=== PATIENT | female | born 1930 | race Caucasian/White ===

== ENCOUNTER 2017-06-22 12:00 | Inpatient (IN) | payer OTHER ==
[~2017-06-22] VITALS: Ht 147.3 cm; Wt 38.6 kg
--- NOTE | ~2017-06-22 | EKG ---
[place] [address] [employer] [place] [address] ELECTROCARDIOGRAM REPORT Name: JONA ENGLAND Room #: 464-P ADM IN M.R.#: [id number] Admission: 06/22/17 Attend Phys: Kodak Adames MD Discharge: Date of : [birth year] Report #: [id number] THIS REPORT FOR: //name// [facility] ED Test Date: 2017-06-22 Test Time: 14:09:38 Pat Name: JONA ENGLAND Department: Room: 464 Gender: F Wound Care Physician: [id number] : 1930 Requested By: Mason Lincoln Order Number: [id number] MD: Devon Mark Measurements Intervals [place] Rate: 154 P: IN: QRS: 94 QRSD: 104 T: -27 QT: 323 QTc: 517 Interpretive Statements Atrial fibrillation with rapid V-rate Borderline low voltage, extremity leads Consider RVH w/ secondary repol abnormality Compared to ECG 06/03/2013 07:07:18 Sinus bradycardia no longer present ST and T wave abnormality now present Electronically Signed On 06-23-2017 8:22:01 CDT by Devon Mark [email or web address] <ELECTRONICALLY SIGNED> By: Devon Mark MD, [facility] 06/23/17 0822 1409 1409 Devon Mark MD, [facility] /EPI
--- NOTE | ~2017-06-22 | 2DMMODE ---
[facility] [address], [facility] [email or web address] [address] 2 D/M-MODE ECHOCARDIOGRAM Name: JONA ENGLAND Room #: 464-P ADM IN M.R.#: [id number] Admission: 06/22/17 Attend Phys: Kodak Adames, Discharge: Date of : [birth year] Date of Service: 06/23/17 1040 Report #: [id number] THIS REPORT FOR: //name// APPROVED REPORT Study performed: 06/23/2017 09:48:49 EXAM: Comprehensive 2D, Doppler, and color-flow Echocardiogram Patient Location: Bedside Room #: 464 Status: routine BSA: 1.30 HR: 80 bpm BP: 148/84 mmHg Rhythm: Atrial Fibrillation Other Information Study Quality: Good Indications Afib RVR. Hx: Afib, COPD 2D Dimensions RVDd: 33.20 mm LVEF(%): 57.70 (>50%) IVSd: 11.35 (7-11mm) LVOT Diam: 19.04 (18-24mm) LVDd: 39.52 mm PWd: 11.54 (7-11mm) Ascending Ao: 32.79 (22-36mm) LVDs: 27.70 (25-40mm) Aortic Root: 30.82 mm Fish's LVEF: 57.70 % Volumes Left Atrial Volume (Systole) Single Plane 4CH: 61.68 mL Single Plane 2CH: 80.07 mL LA ESV Index: 57.00 mL/m2 Aortic Valve AoV Peak Luis.: 1.22 m/s AO Peak Gr.: 7.81 mmHg LVOT Max P.71 mmHg LVOT Max V: 0.65 m/s SCAR Vmax: 1.52 cm2 Mitral Valve MV Decel. Time: 140.81 ms MV E Max Luis.: 1.53 m/s [facility] [place] [address] 2 D/M-MODE ECHOCARDIOGRAM Name: JONA ENGLAND Room #: 464-P [facility] IN M.R.#: [id number] Admission: 06/22/17 Attend Phys: Kodak Adames, Discharge: Date of : [birth year] Date of Service: 06/23/17 1040 Report #: [id number] Pulmonary Valve PV Peak Luis.: 0.58 m/s PV Peak Gr.: 1.39 mmHg Tricuspid Valve TR Peak Luis.: 2.88 m/s RAP Estimate: 10.00 mmHg TR Peak Gr.: 33.21 mmHg PA Pressure: 43.00 mmHg Left Ventricle The left ventricle is normal size. There is normal LV segmental wall motion. Borderline concentric left ventricular hypertrophy. Left ventricular systolic function is normal. LVEF is 50-55%. This study is not technically sufficient to allow evaluation of the LV diastolic function due to atrial fibrillation. Right Ventricle The right ventricle is normal size. Right ventricle is mildly hypokinetic. Atria Left atrium is severely dilated. Right atrium is severely dilated. Aortic Valve Aortic valve is trileaflet, mildly thickened Mild aortic regurgitation. There is no aortic valvular stenosis. Mitral Valve Mitral valve leaflets are thickened. Moderately severe mitral regurgitation No evidence of mitral valve stenosis. Tricuspid Valve The tricuspid valve is normal in structure. There is moderate tricuspid regurgitation. There is moderate pulmonary hypertension with an estimated PAP of 45mmHg. Pulmonic Valve The pulmonary valve is normal in structure. Mild pulmonic regurgitation. Great Vessels The aortic root is normal in size. IVC is dilated and collapses <50% with inspiration. Pericardium [facility] [address] [place] [address] 2 D/M-MODE ECHOCARDIOGRAM Name: JONA ENGLAND Room #: 464-P [facility] IN .R.#: [id number] Admission: 06/22/17 Attend Phys: Kodak Adames, Discharge: Date of : [birth year] Date of Service: 06/23/17 1040 Report #: [id number] There is no pericardial effusion. Left and right pleural effusions noted. <Conclusion> Left ventricular systolic function is normal. LVEF is 50-55%. Normal LV segmental wall motion. Both atria are severely dilated. Aortic valve is trileaflet, mildly thickened; no stenosis. Mild regurgitation. Mitral valve leaflets are thickened. Moderately severe mitral regurgitation Pulmonary artery pressure of 45mmHg There is no pericardial effusion. <ELECTRONICALLY SIGNED> By: Devon Mark MD, [facility] 06/23/17 1040 1040 1040 Devon Mark MD, [facility] /INF
--- NOTE | ~2017-06-22 | EKG ---
[address] [address] ELECTROCARDIOGRAM REPORT Name: JONA ENGLAND Room #: 464-P ADM IN M.R.#: [id number] Admission: 06/22/17 Attend Phys: Kodak Adames MD Discharge: Date of : [birth year] Report #: [id number] THIS REPORT FOR: //name// [facility] Test Date: 2017-06-23 Test Time: 07:49:54 Pat Name: JONA ENGLAND Department: Room: 464 Gender: F Head Teacher: estela : 1930 Requested By: Mason Lincoln Order Number: [id number] MD: Devon Mark Measurements Intervals [place] Rate: 111 P: HI: QRS: 91 QRSD: 103 T: 28 QT: 387 QTc: 526 Interpretive Statements Atrial fibrillation Right ventricular conduction delay Compared to ECG 06/03/2013 07:07:18 Heart rate has slowed Electronically Signed On 06-23-2017 9:10:51 CDT by Devon Mark [email or web address] <ELECTRONICALLY SIGNED> By: Devon Mark MD, [facility] 06/23/1710 0749 0749 Devon Mark MD, [facility] /EPI
--- NOTE | ~2017-06-22 | H ---
[facility] [place] [address] HISTORY AND PHYSICAL Name: JONA ENGLAND Room #: 464-P ADM IN M.R.#: [id number] Admission: 06/22/17 Attend Phys: Kodak Adames MD Discharge: Date of : [birth year] Report #: [id number] THIS REPORT FOR: //name// CC: Kodak Lebron DATE OF SERVICE: 06/22/2017 REASON FOR ADMISSION: Failure to thrive. HISTORY OF PRESENT ILLNESS: The patient is a pleasant 87-year-old female with multiple underlying medical problems including dementia as well as chronic atrial fibrillation. She has recently been experiencing poor p.o. intake and nausea. She has also been somewhat more confused intermittently. There has also been some note made of occasional rectal blood in her stool. The patient herself appears to be deteriorating hence her family brought her into the emergency room today. Here, she was noted to be tachycardic with atrial fibrillation with heart rates in the 140-150 range. She is awake and alert and appropriately responsive; however, reports poor appetite as well as some mild subjective nausea. She denies any fevers at home. She denies cloudy urine. She denies chest pain, shortness of breath, skin rashes or other problems at this time. PAST MEDICAL HISTORY: Includes: 1. Chronic atrial fibrillation, on rate control and anticoagulation. 2. Dementia. 3. Hypertension. 4. Hyperlipidemia. 5. Peripheral vascular disease, requiring . PAST SURGICAL HISTORY: Includes hysterectomy. MEDICATIONS: Refer to reconciliation note. ALLERGIES: Reported to [facility]. SOCIAL HISTORY: She is a nonsmoker, nondrinker and lives at home with her family. FAMILY HISTORY: Includes hypertension. REVIEW OF SYSTEMS: Twelve-point review of systems performed and negative except as mentioned in history of present illness. PHYSICAL EXAMINATION: VITAL SIGNS: When seen today, the patient's vitals, afebrile, pulse rate 120s [address] [address] HISTORY AND PHYSICAL Name: JONA ENGLAND Room #: 464-P [facility] IN ..#: [id number] Admission: 06/22/17 Attend Phys: Kodak Adames MD Discharge: Date of : [birth year] Report #: [id number] to 150s, irregular; respiratory rate of 16, blood pressure 136/91, O2 sat is 98 on nasal cannula. GENERAL: Elderly frail lady, in no acute obvious distress. HEENT: Unremarkable. NECK: No JVD or thyromegaly. CARDIOVASCULAR: S1, S2 irregularly irregular, tachycardic. RESPIRATORY: Air entry present bilaterally. ABDOMEN: Soft, nontender. EXTREMITIES: Without edema. NEUROLOGIC: Awake, alert and appropriately responsive, able to move all extremities without any obvious focality. SKIN: Dry. LABS AND INVESTIGATIONS: Reviewed. Chemistry notable for hyponatremia 123, hypochloremia of 87. BUN and creatinine is 31 and 1.1, glucose mildly elevated at 131. AST and ALT mildly elevated at 57 and 67 respectively. Lactic acid mildly elevated at 2.6. CBC is unremarkable without any significant leukocytosis. Urinalysis with negative nitrites, trace leukocyte esterase, 6-15 white blood cells. IMAGING: Includes a chest x-ray, which shows mild bibasilar infiltrates and trace effusions. ASSESSMENT AND PLAN: This is an 87-year-old female being admitted with failure to thrive and nausea. 1. Failure to thrive/nausea, suspect this is primarily all related to her underlying dementia and suspect treatment modalities are unlikely limited. She does have some metabolic abnormalities at the present time and we will attempt to correct the same and see if there is any improvement. We will also obtain a liver ultrasound and KUB in light of mild transaminitis in case this may be contributory to her symptoms, though this was felt unlikely. 2. Chronic atrial fibrillation and rapid ventricular response. With rapid ventricular response at the present time, she is being started on a diltiazem infusion and will be seen by Dr. Alcala with cardiology. She also will have her Apixaban resumed. 3. Possible urinary tract infection. She does appear to have some pyuria; however, does not have leukocytosis or nitrites or any other significant finding at the present time, we will continue empiric Rocephin as started in the emergency room and follow urine cultures. She does not appear to have any signs of sepsis right now. She does have trivial lactic acid elevation; however, this is felt to be tachycardia mediated. 4. Underlying dementia, on Aricept. 5. Code status: The patient is do not resuscitate/do not intubate, which was discussed with the family present at bedside today. 6. Overall, the patient appears to have symptoms related to advanced dementia and may benefit from placement and will involve physical and occupational [facility] [address] [place] [address] HISTORY AND PHYSICAL Name: JONA ENGLAND Room #: 464-P ADM IN M.R.#: [id number] Admission: 06/22/17 Attend Phys: Kodak Adames MD Discharge: Date of : [birth year] Report #: [id number] therapy services as well as case management . 7. Hyponatremia and hypochloremia, likely represents dehydration from poor oral intake. We will hydrate and assess for improvement. <ELECTRONICALLY SIGNED> By: Kodak Adames MD 06/23/17 1258 1550 1706 Kodak Adames MD /nt
[~2017-06-22 12:00] MED LIST: ASPIRIN EC325 M1 PO; AZOR 10-40 MG1 EACH PO; BYSTOLIC10 MG PO; CALCIUM 600 +1 EAC1 PO; CENTRUM COMPLE1 EACH PO; CLONIDINE HCL0.2 M2 PO; COMPLETE M9 MG/15 ML; FLONASE 0.05%50 MCG NASAL; HYDROCHLOROTHIA25 M1 PO; LUMIGAN2.5 ML OPHTHALMIC; SIMVASTATIN20 MG PO; ZYRTEC10 M2 PO
[2017-06-22 12:02] VITALS: BP 130/81
[2017-06-22 13:28] LABS: ABSOLUTE NEUTROPHILS 6.4 thou/uL (1.4-8.2); BASOPHILS 0.5 % (0.0-2.0); EOSINOPHILS 0.1 % (0.0-3.0); HEMATOCRIT 38.5 % (37.0-47.0); LYMPHOCYTES 11.4 % (24.0-44.0); MCH 29.2 pg (26.0-34.0); MCHC 33.7 g/dL (28.0-37.0); MCV 86.5 fL (80.0-100.0); MONOCYTES 10.1 % (1.0-8.0); PLATELET COUNT 168 thou/uL (150-400); POLYS 77.9 % (36.0-66.0); RBC 4.45 mil/uL (4.20-5.00); RDW 13.5 % (10.5-14.5); WBC 8.2 thou/uL (4.0-11.0)
[2017-06-22] MEDS ORDERED: ELIQUIS2.5 MG PO (13:33)
[2017-06-22 13:34] LABS: MANUAL DIFF NO
[2017-06-22] MEDS ORDERED: ARICEPT 5 MG TAB5 MG PO (13:35)
[2017-06-22 13:51] LABS: CALCIUM 9.7 mg/dL (8.5-10.1); CREATININE 1.1 mg/dL (0.6-1.0); POTASSIUM 3.8 mmol/L (3.5-5.1)
[2017-06-22 13:57] LABS: ALBUMIN 3.5 g/dL (3.4-5.0); DIRECT BILIRUBIN 0.2 mg/dL (<0.1-0.3); TOTAL BILIRUBIN 0.6 mg/dL (<0.1-1.0); TOTAL PROTEIN 6.6 g/dL (6.4-8.2)
[2017-06-22 14:01] LABS: URINE BILIRUBIN NEGATIVE (Negative); URINE BLOOD 2+ (Negative); URINE COLOR YELLOW; URINE GLUCOSE-RANDOM* NEGATIVE (Negative); URINE KETONES NEGATIVE (Negative); URINE NITRITE NEGATIVE (Negative); URINE PROTEIN (DIPSTICK) 2+ (Negative); URINE SPECIFIC GRAVITY 1.025 (1.003-1.035); URINE UROBILINOGEN 0.2 E.U./dl (0.2-1.0)
[2017-06-22 14:23] LABS: BACTERIA 1-9 Few /HPF (None Seen); CALCIUM OXALATE 0-3 Few /LPF (None Seen); HYALINE CASTS >10 Many /LPF (None Seen); SQUAMOUS 4-10 Moderate /LPF (0-3); URINE RBC 3-10 Few /HPF (0-2); URINE WBC 6-15 Few /HPF (0-5); WBC CLUMPS Few (None Seen)
[2017-06-22 16:20] VITALS: BP 113/74
[2017-06-22 16:30] VITALS: BP 132/71
[2017-06-22 20:56] VITALS: BP 142/89
[2017-06-23 05:05] VITALS: BP 148/84
[2017-06-23 06:08] LABS: HEMATOCRIT 36.9 % (37.0-47.0); HEMOGLOBIN 12.3 gm/dL (12.0-15.0); MCH 29.4 pg (26.0-34.0); MCHC 33.5 g/dL (28.0-37.0); MCV 87.8 fL (80.0-100.0); RBC 4.2 mil/uL (4.20-5.00); RDW 13.7 % (10.5-14.5); WBC 6.5 thou/uL (4.0-11.0)
[2017-06-23 06:16] LABS: CALCIUM 8.6 mg/dL (8.5-10.1); CREATININE 0.9 mg/dL (0.6-1.0); POTASSIUM 3.4 mmol/L (3.5-5.1)
[2017-06-23 08:33] VITALS: BP 143/79
[2017-06-23 12:54] VITALS: BP 150/80
[2017-06-23 16:20] VITALS: BP 148/72
[2017-06-23 21:17] VITALS: BP 150/97
[2017-06-24 03:18] VITALS: BP 175/99
[2017-06-24 04:19] LABS: HEMATOCRIT 36.8 % (37.0-47.0); HEMOGLOBIN 12.2 gm/dL (12.0-15.0); MCH 29.3 pg (26.0-34.0); MCHC 33.1 g/dL (28.0-37.0); MCV 88.4 fL (80.0-100.0); RBC 4.16 mil/uL (4.20-5.00); RDW 13.8 % (10.5-14.5); WBC 8.1 thou/uL (4.0-11.0)
[2017-06-24 04:56] LABS: CALCIUM 7.4 mg/dL (8.5-10.1); CREATININE 0.9 mg/dL (0.6-1.0); POTASSIUM 3.6 mmol/L (3.5-5.1)
[2017-06-24 07:15] VITALS: BP 146/87
[2017-06-24 11:28] VITALS: BP 137/75
[2017-06-24 15:40] VITALS: BP 114/61
[2017-06-24 20:34] VITALS: BP 131/72
[2017-06-25 05:06] VITALS: BP 127/82
[2017-06-25 05:35] LABS: HEMATOCRIT 35.3 % (37.0-47.0); MCH 29.8 pg (26.0-34.0); MCHC 34.1 g/dL (28.0-37.0); MCV 87.4 fL (80.0-100.0); RBC 4.04 mil/uL (4.20-5.00); RDW 14.3 % (10.5-14.5); WBC 7.5 thou/uL (4.0-11.0)
[2017-06-25 05:46] LABS: CREATININE 0.8 mg/dL (0.6-1.0); POTASSIUM 4.3 mmol/L (3.5-5.1)
[2017-06-25 08:06] VITALS: BP 138/85
[2017-06-25] MEDS ORDERED: CARDIZEM CD240 MG PO (08:39)
[2017-06-25] MEDS ORDERED: TOPROL XL100 MG PO (08:39)
[2017-06-25] MEDS ORDERED: CEFPODOXIME PR200 M1 PO (08:42)
[2017-06-25] MEDS ORDERED: DIGOXIN250 MCG PO (08:43)
[2017-06-25 10:48] VITALS: BP 138/85
[2017-06-25 13:30] VITALS: BP 130/70
[2017-06-25 17:44] VITALS: BP 140/86
[2017-06-25 19:10] VITALS: BP 123/71
[2017-06-26 04:10] VITALS: BP 149/61
[2017-06-26 07:55] VITALS: BP 138/85
[2017-06-26 08:11] VITALS: BP 138/85
[2017-06-26 08:15] VITALS: BP 138/85
[2017-06-26 08:16] VITALS: BP 158/100
== END 2017-06-26 13:30 | disposition home health service (06) | DRG 308 ==
LOC: ER 12:00 → EROBS 15:22 → 4W 15:22
PROVIDERS: Hospitalist; Nurse Practitioner
DX: I48.2 Chronic atrial fibrillation (principal); G93.41 Metabolic encephalopathy; N39.0 Urinary tract infection, site not specified; E87.1 Hypo-osmolality and hyponatremia; F03.90 Unspecified dementia, unspecified severity, without behavioral disturbance, psychotic disturbance, mood disturbance, and anxiety; Z66 Do not resuscitate; J44.9 Chronic obstructive pulmonary disease, unspecified; R53.81 Other malaise; F41.9 Anxiety disorder, unspecified; K21.9 Gastro-esophageal reflux disease without esophagitis; I25.10 Atherosclerotic heart disease of native coronary artery without angina pectoris; M19.90 Unspecified osteoarthritis, unspecified site; R13.10 Dysphagia, unspecified; K57.30 Diverticulosis of large intestine without perforation or abscess without bleeding; I10 Essential (primary) hypertension; E86.0 Dehydration; M81.0 Age-related osteoporosis without current pathological fracture; E78.5 Hyperlipidemia, unspecified; I73.9 Peripheral vascular disease, unspecified; E87.8 Other disorders of electrolyte and fluid balance, not elsewhere classified; Z90.710 Acquired absence of both cervix and uterus; Z88.8 Allergy status to other drugs, medicaments and biological substances; Z79.01 Long term (current) use of anticoagulants; Z82.49 Family history of ischemic heart disease and other diseases of the circulatory system; Z79.899 Other long term (current) drug therapy; Z98.42 Cataract extraction status, left eye; Z98.41 Cataract extraction status, right eye; Z88.6 Allergy status to analgesic agent; Z88.2 Allergy status to sulfonamides
CPT/HCPCS: 10045

== ENCOUNTER 2017-07-23 13:51 | Inpatient (IN) | payer OTHER ==
[~2017-07-23] VITALS: Ht 152.4 cm; Wt 37.0 kg
--- NOTE | ~2017-07-23 | EKG ---
[address] [place] [address] ELECTROCARDIOGRAM REPORT Name: ENGLANDJONA Room #: 202-P ADM IN M.R.#: [id number] Admission: 07/23/17 Attend Phys: Saroj Amado Discharge: Date of : [birth year] Report #: [id number] THIS REPORT FOR: //name// [facility] ED Test Date: 2017-07-23 Test Time: 14:09:42 Pat Name: JONA ENGLAND Department: Room: 202 Gender: F Steamer Tender: TORO : 1930 Requested By: Gracia William Order Number: [id number] MD: Harrison Ashley Measurements Intervals [place] Rate: 70 P: 88 DC: 217 QRS: 5 QRSD: 88 T: 240 QT: 308 QTc: 333 Interpretive Statements Sinus rhythm Borderline prolonged DC interval Probable left atrial enlargement RSR' in V1 or V2, right VCD or RVH Repol abnrm suggests ischemia, diffuse leads Electronically Signed On 07-23-2017 21:15:52 CDT by Harrison Ashley [email or web address] <ELECTRONICALLY SIGNED> By: Harrison Ashley MD 07/23/172114 08 08 Harrison Ashley MD /JORJE
[~2017-07-23 13:51] MED LIST changes: +ARICEPT 5 MG TAB5 MG PO; +CARDIZEM CD240 MG PO; +CEFPODOXIME PR200 M1 PO; +DIGOXIN250 MCG PO; +ELIQUIS2.5 MG PO; +TOPROL XL100 MG PO
[2017-07-23 13:53] VITALS: BP 141/66
[2017-07-23 14:31] LABS: ABSOLUTE NEUTROPHILS 7.5 thou/uL (1.4-8.2); BASOPHILS 0.3 % (0.0-2.0); EOSINOPHILS 0.2 % (0.0-3.0); HEMATOCRIT 42.6 % (37.0-47.0); HEMOGLOBIN 14.4 gm/dL (12.0-15.0); LYMPHOCYTES 13.1 % (24.0-44.0); MCH 28.6 pg (26.0-34.0); MCHC 33.7 g/dL (28.0-37.0); MCV 84.7 fL (80.0-100.0); MONOCYTES 8.4 % (1.0-8.0); PLATELET COUNT 275 thou/uL (150-400); RBC 5.03 mil/uL (4.20-5.00); RDW 15.2 % (10.5-14.5); WBC 9.6 thou/uL (4.0-11.0)
[2017-07-23 14:37] LABS: MANUAL DIFF NO
[2017-07-23 14:47] LABS: URINE BILIRUBIN NEGATIVE (Negative); URINE BLOOD NEGATIVE (Negative); URINE COLOR YELLOW; URINE GLUCOSE-RANDOM* NEGATIVE (Negative); URINE KETONES NEGATIVE (Negative); URINE LEUKOCYTES-REFLEX NEGATIVE (Negative); URINE PROTEIN (DIPSTICK) TRACE (Negative)
[2017-07-23] MEDS ORDERED: PEPCID20 MG PO (15:10)
[2017-07-23] MEDS ORDERED: LANOXIN 0.120.125 M1 PO (15:11)
[2017-07-23 15:32] LABS: CALCIUM 9.7 mg/dL (8.5-10.1); POTASSIUM 4.5 mmol/L (3.5-5.1)
[2017-07-23 15:37] LABS: ALBUMIN 3.6 g/dL (3.4-5.0); TOTAL BILIRUBIN 0.6 mg/dL (<0.1-1.0); TOTAL PROTEIN 6.5 g/dL (6.4-8.2)
[2017-07-23 15:42] VITALS: BP 137/80
[2017-07-23 16:26] VITALS: BP 162/56
[2017-07-23 17:15] VITALS: BP 148/71
[2017-07-23 19:21] VITALS: BP 144/59
[2017-07-23 23:33] VITALS: BP 155/56
[2017-07-24 03:35] VITALS: BP 150/61
[2017-07-24 05:44] LABS: HEMOGLOBIN 15.6 gm/dL (12.0-15.0); MCH 28.3 pg (26.0-34.0); MCHC 33.1 g/dL (28.0-37.0); MCV 85.4 fL (80.0-100.0); RBC 5.5 mil/uL (4.20-5.00); RDW 15.1 % (10.5-14.5); WBC 12.3 thou/uL (4.0-11.0)
[2017-07-24 05:53] LABS: CALCIUM 9.4 mg/dL (8.5-10.1); CREATININE 0.8 mg/dL (0.6-1.0); POTASSIUM 4.5 mmol/L (3.5-5.1)
[2017-07-24 06:02] LABS: ALBUMIN 3.6 g/dL (3.4-5.0); TROPONIN-I 0.14 ng/mL (<0.04-0.07)
[2017-07-24 10:57] VITALS: BP 178/103
[2017-07-24 15:08] VITALS: BP 184/103
[2017-07-24 19:31] VITALS: BP 185/73
[2017-07-25 03:01] VITALS: BP 150/61
[2017-07-25 07:02] VITALS: BP 184/80
[2017-07-25 11:47] VITALS: BP 149/65
[2017-07-25 16:00] VITALS: BP 156/72
[2017-07-25 20:35] VITALS: BP 102/82; BP 147/69
[2017-07-26 04:29] VITALS: BP 158/72
[2017-07-26 07:22] VITALS: BP 149/60
[2017-07-26] MEDS ORDERED: AMLODIPINE BESYL5 M1 PO (08:43)
[2017-07-26 11:38] VITALS: BP 136/79
== END 2017-07-26 15:57 | DRG 689 ==
LOC: ER 13:51 → 2N 15:40 → EROBS 15:40 → 2N 17:00
PROVIDERS: Hospitalist; Nurse Practitioner Family
DX: N39.0 Urinary tract infection, site not specified (principal); E43 Unspecified severe protein-calorie malnutrition; Z68.1 Body mass index [BMI] 19.9 or less, adult; M19.90 Unspecified osteoarthritis, unspecified site; K21.9 Gastro-esophageal reflux disease without esophagitis; I10 Essential (primary) hypertension; F03.90 Unspecified dementia, unspecified severity, without behavioral disturbance, psychotic disturbance, mood disturbance, and anxiety; Z96.641 Presence of right artificial hip joint; E86.0 Dehydration; Z66 Do not resuscitate; R62.7 Adult failure to thrive; I73.9 Peripheral vascular disease, unspecified; I48.0 Paroxysmal atrial fibrillation; M81.0 Age-related osteoporosis without current pathological fracture; I25.10 Atherosclerotic heart disease of native coronary artery without angina pectoris; E78.00 Pure hypercholesterolemia, unspecified; Z88.2 Allergy status to sulfonamides; Z88.5 Allergy status to narcotic agent; Z90.710 Acquired absence of both cervix and uterus; Z95.828 Presence of other vascular implants and grafts; Z98.42 Cataract extraction status, left eye; Z98.41 Cataract extraction status, right eye; Z88.8 Allergy status to other drugs, medicaments and biological substances
CPT/HCPCS: 10081